=== PATIENT | female | born 1960 | race Hispanic/Latino ===

== ENCOUNTER → 2018-05-21 | Outpatient (CLI) | payer OTHER ==
--- NOTE | 2018-05-21 12:19 | Diagnostic Imaging Report ---
Exam: Right knee radiographs-3 views; left knee radiographs-3 views History: Knee osteoarthritis. Comparison: None. Findings: Diffuse osteopenia. Right knee: There are mild lateral compartment predominant tricompartmental degenerative changes with joint space narrowing and bony osteophyte formation. No evidence of acute fracture, malalignment, or joint effusion. Left knee: There are moderate lateral compartment predominant tricompartmental degenerative changes with joint space narrowing and bony osteophyte formation. No evidence of acute fracture, malalignment, or joint effusion. Impression: Mild right knee and moderate left knee osteoarthritis. Diffuse osteopenia. Signed by: Dr. Aniceto Khan MD on 05/21/2018 12:15 PM
== END ==
LOC: RAD 10:53
PROVIDERS: ATTEND Family Medicine
DX: M17.0 Bilateral primary osteoarthritis of knee (principal)